=== PATIENT | female | born 1995 | race Hispanic/Latino ===

== ENCOUNTER 2020-12-22 12:22 | Outpatient (CLI) | payer OTHER ==
[2020-12-22 21:14] LABS: SARS-CoV-2 PCR by NAA Not Detected (NotDetected)
== END 2020-12-22 12:23 | disposition home or self-care (01) ==
LOC: CSHLAB 12:22
PROVIDERS: ATTEND Obstetrics & Gynecology
DX: Z01.812 Encounter for preprocedural laboratory examination (principal); Z20.822 Contact with and (suspected) exposure to COVID-19
CPT/HCPCS: U0003; U0005

== ENCOUNTER 2020-12-26 18:37 | Inpatient (IN) | payer OTHER ==
[2020-12-26 20:33] VITALS: BMI 43.4
[2020-12-26] MEDS ORDERED: Misoprostol 200 MCG TAB PR PRN (20:47)
[2020-12-26] MEDS ORDERED: Promethazine HCl 25 MG/ML VIAL IM PRN (20:47)
[2020-12-26] MEDS ORDERED: hydrALAZINE 20 MG/ML VIAL SLOW IVP PRN (20:47)
[2020-12-26] MEDS ORDERED: Ibuprofen 800 MG TAB PO PRN (20:47)
[2020-12-26] MEDS ORDERED: Methylergonovine 0.2 MG/ML VIAL IM PRN (20:47)
[2020-12-26] MEDS ORDERED: Diphenoxylate HCl/Atropine Tablet PO PRN ×2 (20:47)
[2020-12-26] MEDS ORDERED: Butorphanol Tartrate 1 MG/ML VIAL SLOW IVP PRN (20:47)
[2020-12-26] MEDS ORDERED: Lidocaine 1% (PF) 30 ML VIAL SC PRN (20:47)
[2020-12-26] MEDS ORDERED: Docusate 100 MG CAP PO PRN (20:47)
[2020-12-26] MEDS ORDERED: Carboprost 250 MCG/ML AMP IM PRN (20:47)
[2020-12-26] MEDS ORDERED: Acetaminophen 500 MG TAB PO PRN (20:47)
[2020-12-26] MEDS ORDERED: Ondansetron PF 4 MG/2 ML Vial IVP PRN (20:47)
[2020-12-26] MEDS ORDERED: HYDROcodone/Acetaminophen 5/325 mg Tablet PO PRN ×2 (20:47)
[2020-12-26 21:06] LABS: Hemoglobin 11.8 g/dL (12.0-15.5); Mean Corpuscular HGB CONC 33.6 g/dL (32.0-36.0); Mean Corpuscular Hemoglobin 28.6 pg (27.0-33.0); Mean Platelet Volume 10.3 fl (7.4-10.4); Platelet Count 246 10x3/uL (150-450); RBC Distribution Width 13.7 % (11.5-14.5); Red Blood Cell (RBC) Count 4.13 10x6/uL (3.90-5.03); White Blood Cell (WBC) Count 15.1 10x3/uL (3.5-10.5)
[2020-12-26] MEDS ORDERED: NS w/ Oxytocin 30 units 500 ML IVPB SCH (21:30)
[2020-12-26] MEDS ORDERED: NS w/ Oxytocin 30 units 500 ML IV SCH ×2 (21:30)
[2020-12-26 21:38] LABS: Syphilis Antibody Nonreactive (Nonreactive); Syphilis Antibody Index 0.05 S/CO (<1.00 Non-Reactive)
[2020-12-26 21:39] LABS: Hep B Surf Ag Non-Reactive S/CO (NonReactive)
[2020-12-26] MEDS: Misoprostol 100 MCG TAB VAG SCH (21:39)
[2020-12-27] MEDS: Misoprostol 100 MCG TAB VAG SCH ×2 (00:35→08:43)
[2020-12-27 10:41] LABS: HIV (1/2) Antibody/Antigen Non-Reactive (NonReactive); HIV 1/2 INDEX 0.14 S/CO (<1.00)
[2020-12-27] MEDS: Lactated Ringer's 1,000 ML IV SCH (14:22)
[2020-12-27] MEDS ORDERED: Fentanyl 2 mcg/Bup 0.1% Cadd 100 ML ONE (19:04)
[2020-12-27] MEDS ORDERED: PHENYLEPHRINE-NS 100 MCG/ML 10 ML SYRINGE ONE (20:10)
[2020-12-27] MEDS ORDERED: diphenhydrAMINE 50 MG/ML VIAL IVP PRN (20:34)
[2020-12-27] MEDS ORDERED: Ondansetron PF 4 MG/2 ML Vial IVP PRN (20:34)
[2020-12-27] MEDS ORDERED: Promethazine HCl 25 MG/ML VIAL IM PRN (20:34)
[2020-12-27] MEDS ORDERED: Hydrocerin (Eucerin) Cream 120 gm Jar TOP PRN (20:34)
[2020-12-27] MEDS ORDERED: Lactated Ringer's 500 ML IV PRN (20:34)
[2020-12-27] MEDS ORDERED: Naloxone HCl 0.4 mg/ml Vial IVP PRN ×2 (20:34)
[2020-12-27] MEDS ORDERED: ePHEDrine Sulfate 50 MG/10 ML VIAL SLOW IVP PRN (20:34)
[2020-12-27] MEDS ORDERED: Acetaminophen 325 MG TAB PO PRN (20:34)
[2020-12-27] MEDS ORDERED: Communication Order-Pharmacy FS SCH (20:45)
[2020-12-27] MEDS ORDERED: Fentanyl 2 mcg/Bupivacaine 0.1% Cassette 100 ML EPIDURAL SCH (20:45)
[2020-12-28] MEDS ORDERED: Misoprostol 200 MCG TAB ONE (04:01)
[2020-12-28] MEDS ORDERED: Varicella virus, LIVE 0.5 ML VIAL SC ONE (05:55)
[2020-12-28] MEDS ORDERED: Lanolin Ointment 7 GM TUBE TOP PRN (05:55)
[2020-12-28] MEDS ORDERED: Methylergonovine 0.2 MG/ML VIAL IM PRN (05:55)
[2020-12-28] MEDS ORDERED: Milk Of Magnesia 30 ML UDCUP PO PRN (05:55)
[2020-12-28] MEDS ORDERED: HYDROcodone/Acetaminophen 5/325 mg Tablet PO PRN (05:55)
[2020-12-28] MEDS ORDERED: Boostrix 0.5 ML (Tdap) VIAL IM ONE (05:55)
[2020-12-28] MEDS ORDERED: hydrALAZINE 20 MG/ML VIAL SLOW IVP PRN (05:55)
[2020-12-28] MEDS ORDERED: Benzocaine-Menthol 82.5 ML CAN TOP PRN (05:55)
[2020-12-28] MEDS ORDERED: Misoprostol 200 MCG TAB VAG PRN (05:55)
[2020-12-28] MEDS ORDERED: Bisacodyl 10 MG SUPP PR PRN (05:55)
[2020-12-28] MEDS ORDERED: Promethazine HCl 25 MG/ML VIAL IM PRN (05:55)
[2020-12-28] MEDS ORDERED: Zolpidem Tartrate 5 MG TAB PO PRN (05:55)
[2020-12-28] MEDS ORDERED: Preparation H Ointment 28 GM TUBE PR PRN (05:55)
[2020-12-28] MEDS ORDERED: Measles/Mumps/Rubella 10 MCG/0.5 ML VIAL SC ONE (05:55)
[2020-12-28] MEDS ORDERED: Ondansetron PF 4 MG/2 ML Vial IVP PRN (05:55)
[2020-12-28] MEDS ORDERED: diphenhydrAMINE 25 MG CAP PO PRN (05:55)
[2020-12-28] MEDS ORDERED: NS w/ Oxytocin 30 units 500 ML IV SCH (06:00)
[2020-12-28] MEDS: Ferrous Sulfate 325 MG TAB PO SCH ×2 (08:26→16:42)
[2020-12-28] MEDS: Prenatal Vitamin 1 TAB PO SCH (08:26)
[2020-12-28] MEDS: Docusate Calcium (SURFAK) 240 MG CAP PO SCH ×2 (08:26→22:03)
[2020-12-28] MEDS: Ibuprofen 800 MG TAB PO SCH ×3 (10:00→23:36)
[2020-12-28] MEDS: Lactated Ringer's 1,000 ML IV SCH ×2 (10:13→10:14)
[2020-12-28] MEDS: Misoprostol 100 MCG TAB VAG SCH ×2 (10:14→10:15)
[2020-12-29] MEDS: Ibuprofen 800 MG TAB PO SCH ×2 (06:33→13:39)
[2020-12-29 07:39] LABS: Hemoglobin 11.4 g/dL (12.0-15.5); Mean Corpuscular HGB CONC 32.9 g/dL (32.0-36.0); Mean Corpuscular Hemoglobin 28.3 pg (27.0-33.0); Mean Corpuscular Volume 85.9 fl (81.6-98.3); Mean Platelet Volume 10.4 fl (7.4-10.4); Platelet Count 195 10x3/uL (150-450); RBC Distribution Width 14.2 % (11.5-14.5); Red Blood Cell (RBC) Count 4.03 10x6/uL (3.90-5.03); White Blood Cell (WBC) Count 12.1 10x3/uL (3.5-10.5)
[2020-12-29 07:52] VITALS: BP 121/79; TEMP 98.2
[2020-12-29] MEDS: Docusate Calcium (SURFAK) 240 MG CAP PO SCH (08:06)
[2020-12-29] MEDS: Prenatal Vitamin 1 TAB PO SCH (08:06)
[2020-12-29] MEDS: Ferrous Sulfate 325 MG TAB PO SCH ×2 (08:07→14:42)
== END 2020-12-29 18:30 | disposition home or self-care (01) | DRG 807 ==
LOC: CSHLD 18:37 → CSHPP 12-28 06:05
PROVIDERS: ADMIT Obstetrics & Gynecology; ATTEND Obstetrics & Gynecology
PROC: 3E0P7VZ Introduction of Hormone into Female Reproductive, Via Natural or Artificial Opening (ICD-10-PCS; 2020-12-26)
PROC: 10E0XZZ Delivery of Products of Conception, External Approach (ICD-10-PCS; principal; 2020-12-28)
DX: O13.4 Gestational [pregnancy-induced] hypertension without significant proteinuria, complicating childbirth (principal); Z37.0 Single live birth; Z3A.37 37 weeks gestation of pregnancy
CPT/HCPCS: 36415; 51702; 85027; 86780; 86850; 86900; 86901; 87340; 87389; 87536; J1200; J2590; J7120